=== PATIENT | male | born 1995 | race Caucasian/White ===

== ENCOUNTER 2021-10-23 15:07 | Emergency (ER) | payer OTHER ==
[2021-10-23 15:16] VITALS: BP 112/66; PULSE 115; RESP 20; TEMP 98.2
[2021-10-23] MEDS ORDERED: LORazepam 1 MG TAB PO STA (16:08)
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
--- NOTE | 2021-10-23 17:16 | XR ---
EXAMINATION TYPE: XR chest 2V DATE OF EXAM: 10/23/2021 COMPARISON: NONE HISTORY: Chest pain/anxiety. TECHNIQUE: Frontal and lateral views of the chest are obtained. FINDINGS: There is no focal air space opacity, pleural effusion, or pneumothorax seen. The cardiac silhouette size is within normal limits. The osseous structures are intact. IMPRESSION: No acute cardiopulmonary process.
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
== END 2021-10-23 18:17 | disposition home or self-care (01) ==
LOC: EC 15:07
DX: N50.82 Scrotal pain (principal); F41.9 Anxiety disorder, unspecified; F17.200 Nicotine dependence, unspecified, uncomplicated
CPT/HCPCS: 71046; 76870; 93005; 93975; 99284